=== PATIENT | male | born 1950 | race Caucasian/White ===

== ENCOUNTER 2018-01-06 06:12 | Day surgery (SDC) | payer OTHER, MEDICARE ==
[2018-01-05 09:44] VITALS: BMI 25.2
[2018-01-06] MEDS ORDERED: ceFAZolin SODIUM 1 GM VIAL ONE ×2 (07:28→11:34)
[2018-01-06] MEDS ORDERED: fentaNYL CITRATE 250 MCG/5 ML VIAL ONE ×2 (07:28→10:49)
[2018-01-06] MEDS ORDERED: DEXAMETHASONE SOD PHOSPHATE 4 MG/1 ML VIAL ONE ×2 (07:28→11:34)
[2018-01-06] MEDS ORDERED: MIDAZOLAM HCL 2 MG/2 ML SINGLE DOSE VIAL ONE ×4 (07:29→10:50)
[2018-01-06] MEDS ORDERED: PROPOFOL 20 ML ONE ×2 (07:29)
[2018-01-06] MEDS ORDERED: DEXAMETHASONE SOD PHOSPHATE/PF 10 MG/ML SDV ONE (07:36)
[2018-01-06] MEDS ORDERED: ROPIVACAINE HCL 0.5% 30ML VIAL ONE (07:36)
[2018-01-06] MEDS ORDERED: BUPIVACAINE HCL/PF 0.5% (5MG/ML) 10 ML VIAL ONE (07:40)
[2018-01-06] MEDS ORDERED: LIDOCAINE HCL/PF 2% SDV 5ML VIAL ONE (07:40)
[2018-01-06] MEDS ORDERED: ROCURONIUM BROMIDE 50 MG/5 ML VIAL ONE ×2 (07:42→10:49)
--- NOTE | 2018-01-06 08:21 | HP ---
Satellite H - Chief Complaint Chief Complaint: Right inguinal hernia with pain. Supraumbilical hernia with pain History Source: Patient Limitations to Obtaining History: No Limitations - Past Medical History Allergies/Adverse Reactions: Allergies Allergy/AdvReac Type Severity Reaction Status Date / Time No Known Allergies Allergy Verified 01/06/18 06:47 Cardiovascular: Yes: CAD, HTN, Hyperlipdemia - Current Medications Current Medications: Home Medications Medication Instructions Recorded Aspirin [ASA -] 81 mg PO DAILY 01/05/18 Ibuprofen 800 mg PO DAILY 01/05/18 Lisinopril 5 mg PO DAILY 01/05/18 Simvastatin 80 mg PO HS 01/05/18 Docusate Sodium [Colace -] 100 mg PO TID #90 capsule 01/06/18 Multivit-Min/FA/Lycopen/Lutein 1 each PO DAILY 01/06/18 [Centrum Silver Men Tablet] Oxycodone HCl/Acetaminophen 1 - 2 tab PO Q6H #28 tab MDD 4 01/06/18 [Percocet 5-325 mg Tablet] Satellite Physical Exam - Physical Examination Vital Signs: Vital Signs Period Temp Pulse Resp BP Sys/[place]ham Pulse Ox Last 24 Hr 97.4 F-97.4 F 52-52 20-20 161-161/88-88 96 General Appearance: Well Nourished ENT: Clear Lung: Clear to auscultation Heart: Regular rate & rhythm Abdomen: Soft, Other (+ right inguinal hernia, + supraumbilical hernia) Neurological: Alert, Oriented Satellite Impression/Plan - Impression/Plan Impression: Right inguinal hernia. Supraumbilical hernia Operative Procedure: Robotic possible open right inguinal hernia repair with mesh. Robotic, laparoscopic possible open ventral/incisional hernia repair with possible mesh Date to be Performed: 01/06/18
[2018-01-06] MEDS ORDERED: ceFAZolin SODIUM 1 GM VIAL IVPB ONE (11:39)
[2018-01-06] MEDS ORDERED: BUPIVACAINE HCL/PF (5 MG/ML) 30 ML VIAL IJ ONE (13:20)
[2018-01-06] MEDS ORDERED: ONDANSETRON 4 MG/2 ML VIAL IVPUSH PRN (13:26)
[2018-01-06] MEDS ORDERED: oxyCODONE HCL 5 MG TABLET PO PRN (13:26)
--- NOTE | 2018-01-06 13:28 | OP ---
Operative Note - Note: Operative Date: 01/06/18 Pre-Operative Diagnosis: Right inguinal hernia. Supraumbilical/ventral/ incisional hernia Operation: Robotic right inguinal hernia repair with 15cm symbotex mesh. Open ventral/incisional/supraumbilical hernia repair Post-Operative Diagnosis: Same as Pre-op Surgeon: Kishore Fernando Timber Poisoner: Danyelle Amaya Anesthesia: General Specimens Removed: Hernia sac Estimated Blood Loss (mls): 10 Operative Report Dictated: Yes
[2018-01-06] MEDS ORDERED: LACTATED RINGERS SOLUTION 1,000 ML IV SCH (13:30)
--- NOTE | 2018-01-06 14:25 | OP ---
DATE OF OPERATION: 01/06/2018 SURGEON: Kishore Fernando MD SECOND HAND PAPER MACHINE: CALDERON Ernst PREOPERATIVE DIAGNOSIS: Right inguinal hernia and a ventral incisional supraumbilical hernia. POSTOPERATIVE DIAGNOSIS: Right inguinal hernia and a ventral incisional supraumbilical hernia. PROCEDURES: 1. Robotic right inguinal hernia repair with mesh. 2. Open ventral/incisional hernia repair with primary closure. SPECIMEN: Hernia sac from the ventral incisional midline hernia. ESTIMATED BLOOD LOSS: 10 mL. DRAINS: None. ANESTHESIA: GET. Raza catheter. REASON FOR PROCEDURE: This is a 67-year-old gentleman who had a prior prostatectomy and need to have both a right inguinal hernia as well as an incisional ventral supraumbilical hernia in one of his prior incisions from his prostatectomy. These were both causing him pain. Because of this, he was consented for a robotic, possible open right inguinal hernia repair with mesh and a robotic laparoscopic, possible open, ventral/supraumbilical incisional hernia repair with possible mesh. The risks and benefits of the procedure were explained. These included bleeding, infection, recurrence of both hernias, injury to the surrounding structures, which included the spermatic cord, the vas deferens, the testicular artery, injury to the testicle itself, testicular atrophy, bowel, colon, other intra-abdominal contents, vessel injury, nerve injury, wound dehiscence, SD, DVT, PE, abscess, seroma as some of the complications. He understood and signed for consent. DESCRIPTION OF PROCEDURE: The patient was placed supine on the operating room table. He underwent general endotracheal intubation. A Raza catheter was then inserted by the nursing staff. A pedraza bag had been placed to hold him into position. The arms were tucked at the sides. The abdomen was prepped and draped with the usual sterile fashion. A time-out was performed. Because of his prior surgeries, an incision in the left upper quadrant was made. An 8-mm optical robotic trocar was placed under direct visualization after Veress needle was inserted and pneumoperitoneum established. Once entrance was obtained in the abdominal cavity and the abdominal cavity was inspected, the right inguinal hernia was noted. At this point, the 8-mm robotic trocars x3 were placed. This was placed at the supraumbilical site as well as in the left upper and right upper quadrants. The patient was placed in Trendelenburg right side up position. The robot was brought off the field and docked. Dissection of the right inguinal hernia was performed. The preperitoneal flap was created using santos. The space was dissected until the entirety of the hernia sac was identified. The hernia sac was dissected away from the inguinal structures staying away from the spermatic cord, vas deferens, testicular artery. Once the hernia sac was fully dissected and cleared, a 15-cm Symbotex mesh was then chosen and used. This was inserted and used to cover the myopectineal orifice. This was secured in place using 2-0 Vicryl suture in several locations. The flap was then closed using 2-0 Vicryl absorbable sutures. Hemostasis was noted. The mesh was noted to be in good position. Once this was done, the robotic instruments were removed, and the needle were accounted for. The robot was then undocked from the field. Pneumoperitoneum was desufflated. All trocars were removed. Attention was then paid to the ventral supraumbilical incisional hernia. The prior incision was extended and this area dissected down to the level of the fascia. Hernia sac was identified and grasped. This was cleared circumferentially and the hernia sac excised and sent off the field as specimen. The fascia was then cleared and closed in a primary fascia using 0 Vicryl suture in a figure of eight fashion x4. Hemostasis was attained. The deep tissue was then closed using 3-0 Vicryl suture. Then 4-0 Biosyn was used to close all skin incisions after Marcaine was injected. The patient tolerated the procedure well. The Raza catheter was removed by the nursing staff, and an abdominal binder was placed. Transferred to the recovery room in stable condition. Lionel [id number]
[2018-01-06 17:04] VITALS: BP 131/70; PULSE 65; TEMP 98.6
--- NOTE | 2018-01-10 16:58 | PATH ---
Surgical Pathology Report Patient Name: MOE MARRUFO [facility]. Rec. #: [id number] /Age/Gender: 1950 (Age: 67) / M Account: [id number] Location: [facility] SURGICAL Taken: 01/06/2018 Received: 01/07/2018 Reported: 01/10/2018 Physicians: Kishore Fernando M.D. Specimen(s) Received HERNIA SAC Clinical History Umbilical ventral/incisional hernia, right inguinal hernia Final Diagnosis HERNIA SAC, EXCISION: CONSISTENT WITH HERNIA SAC. Electronically Signed Sergio Azar M.D. Gross Description Received in formalin labeled "hernia sac," is a 3.3 x 2.0 x 1.1 cm haro-salomon portion of fibromembranous tissue with attached fat, consistent with a hernia sac. Contracts Administrator sections are submitted in one cassette. /01/07/2018 saudi/01/07/2018
== END 2018-01-06 17:00 | disposition home or self-care (01) ==
LOC: JASU-SURG 06:12
PROVIDERS: ATTEND Surgery
PROC: 8E0W4CZ Robotic Assisted Procedure of Trunk Region, Percutaneous Endoscopic Approach (ICD-10-PCS; 2018-01-06)
PROC: 0WQF0ZZ Repair Abdominal Wall, Open Approach (ICD-10-PCS; 2018-01-06)
PROC: 0YU54JZ Supplement Right Inguinal Region with Synthetic Substitute, Percutaneous Endoscopic Approach (ICD-10-PCS; principal; 2018-01-06 08:00)
DX: K40.90 Unilateral inguinal hernia, without obstruction or gangrene, not specified as recurrent (principal); K43.2 Incisional hernia without obstruction or gangrene
CPT/HCPCS: 49560; 49650; S2900; 88302-TC; 94760